=== PATIENT | male | born 1940 | race Caucasian/White ===

== ENCOUNTER 2019-02-02 23:51 | Emergency (ER) | payer MEDICARE, BC ==
[~2019-02-02] VITALS: Wt 82.5 kg
[2019-02-03] MEDS ORDERED: SOD CHLORIDE 0.9% 1,000 ML IV STA (00:25)
[2019-02-03] MEDS ORDERED: ONDANSETRON 4 MG INJ IV STA (00:25)
--- NOTE | 2019-02-03 00:47 | ERD ---
ER Documentation Chief Complaint Chief Complaint BIB RA FROM HOME FOR N/V X 1 DAY, DRINKS DAILY HPI 78-year-old male brought in by ambulance from home after he had a few episodes of nausea with nonbloody and nonbilious vomiting. He also complained of generalized weakness. He did have 2 drinks tonight and occasionally drinks. He states he mixed a lot of food as well as it is a holiday. He just thinks he may be did not react to all the food he ate in addition to the drinks. Currently he denies any chest pain or shortness of breath. No abdominal pain. He does feel dizzy and nauseated with movement only. No melena or hematochezia recently. ROS All systems reviewed and are negative except as per history of present illness. Medications Home Meds Active Scripts Meclizine Hcl* (Antivert*) 12.5 Mg Tab, 25 MG PO Q6H PRN for DIZZINESS, #20 TAB Prov:RYAN ANDERSON MD 02/03/19 Allergies Allergies: Coded Allergies: No Known Allergy (Unverified , 02/03/19) PMhx/Soc History of Surgery: Yes (CARDIAC STENT, CHOLECYSTECTOMY ) Anesthesia Reaction: No Hx Neurological Disorder: No Hx Respiratory Disorders: No Hx Cardiac Disorders: Yes (CAD, hypertension) Hx Miscellaneous Medical Probl: Yes ( newly diagnosed diabetes) Hx Alcohol Use: Yes Hx Substance Use: No Hx Tobacco Use: No Smoking Status: Never smoker FmHx Family History: No diabetes Physical Exam Vitals Vital Signs Date Temp Pulse Resp B/P (MAP) Pulse Ox O2 O2 Flow FiO2 Time Delivery Rate 02/03/19 98.7 86 19 122/73 99 Room Air 05:32 (89) 02/03/19 98.7 61 19 111/67 99 Room Air 00:36 (82) 02/02/19 98.7 75 19 115/89 96 23:56 (98) Physical Exam Const: No acute distress, appears fatigued Head: Atraumatic Eyes: Normal Conjunctiva, PERRLA, EOMI. left-sided horizontal nystagmus. No vertical or rotatory nystagmus. ENT: Dry mucous membranes. Normal External Ears, Nose and Mouth. Neck: Full range of motion. No meningismus. Resp: Clear to auscultation bilaterally Cardio: Regular rate and rhythm, no murmurs 2+ distal pulses in all 4 extremities Abd: Soft, non tender, non distended. Normal bowel sounds Skin: No petechiae or rashes Back: No midline or flank tenderness Ext: No cyanosis, or edema Neur: Awake and alert, oriented, cranial nerves intact, strength and sensations intact in all 4 extremities. Normal speech without dysarthria or aphasia. Psych: Normal Mood and Affect Result Diagram: 02/03/19 0015 02/03/19 0015 Results 24 hrs Laboratory Tests Test 02/03/19 00:15 02/03/19 04:41 White Blood Count 5.0 10^3/ul Red Blood Count 4.44 10^6/ul Hemoglobin 11.9 g/dl Hematocrit 35.4 % Mean Corpuscular Volume 79.7 fl Mean Corpuscular Hemoglobin 26.8 pg Mean Corpuscular Hemoglobin Concent 33.6 g/dl Red Cell Distribution Width 12.2 % Platelet Count 231 10^3/UL Mean Platelet Volume 9.5 fl Immature Granulocytes % 0.200 % Neutrophils % 56.5 % Lymphocytes % 33.9 % Monocytes % 7.0 % Eosinophils % 2.0 % Basophils % 0.4 % Nucleated Red Blood Cells % 0.0 /100WBC Immature Granulocytes # 0.010 10^3/ul Neutrophils # 2.8 10^3/ul Lymphocytes # 1.7 10^3/ul Monocytes # 0.4 10^3/ul Eosinophils # 0.1 10^3/ul Basophils # 0.0 10^3/ul Nucleated Red Blood Cells # 0.0 10^3/ul Sodium Level 139 mmol/L Potassium Level 4.0 mmol/L Chloride Level 104 mmol/L Carbon Dioxide Level 23 mmol/L Anion Gap 12 Blood Urea Nitrogen 22 mg/dl Creatinine 0.96 mg/dl Est Glomerular Filtrat Rate mL/min mL/min Glucose Level 225 mg/dl Calcium Level 9.0 mg/dl Total Bilirubin 0.4 mg/dl Direct Bilirubin 0.00 mg/dl Indirect Bilirubin 0.4 mg/dl Aspartate Amino Transf (AST/SGOT) 23 IU/L Alanine Aminotransferase (ALT/SGPT) 17 IU/L Alkaline Phosphatase 56 IU/L Troponin I < 0.012 ng/ml < 0.012 ng/ml Total Protein 6.7 g/dl Albumin 4.0 g/dl Globulin 2.70 g/dl Albumin/Globulin Ratio 1.48 Lipase 207 U/L Current Medications Medications Dose Sig/Michael Start Time Status Last (Trade) Ordered Route PRN Stop Time Admin Dose Reason Admin Sodium 1,000 ml @ Q1H STAT 02/03/19 DC 02/03/19 Chloride 1,000 mls/hr IV 00:25 00:31 02/03/19 01:24 Ondansetron 4 mg ONCE STAT 02/03/19 DC 02/03/19 HCl (Zofran IV 00:25 00:31 Inj) 02/03/19 00:26 10 mg ONCE ONCE 02/03/19 DC 02/03/19 Metoclopramid IV 03:00 02:47 e HCl 02/03/19 03:01 (Reglan) Procedures/MDM EMERGENT LABS AND DIAGNOSTIC STUDIES: Lab Results above were reviewed and interpreted by me. CBC: no anemia or evidence of infection CMP: Hyperglycemic. 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 Radiology Results as interpreted by Radiology below were reviewed by SShonna Anderson MD: Chest x-ray shows no acute abnormalities Initial Nursing notes reviewed. Previous Medical Records requested via the Electronic Health Record. EMERGENCY DEPARTMENT COURSE / MEDICAL DECISION MAKING: Patient is presenting with nausea and vomiting and generalized weakness. Vitals were unremarkable upon arrival. He is neurovascularly intact. He did have some nystagmus, concerning for possible peripheral vertigo. Workup did not show any significant abnormalities. Troponin was within normal limits. Patient was treated with antiemetics and IV fluids. At rest he was fine but with ambulation he did get vertiginous and had another episode of vomiting. He was treated with another antiemetic and repeat troponin was done. Repeat troponin was again within normal limits. Upon reevaluation, the patient was ambulating with a steady gait and was no longer symptomatic. I have a low suspicion for intracranial hemorrhage or stroke. I do not suspect acute coronary syndrome. I feel the patient is stable for discharge at this time. He feels comfortable with discharge plan. Return precautions were discussed. Meclizine was given for possible peripheral vertigo. Patient's blood pressure was elevated (>120/80) but appears stable without evidence of hypertensive emergency or urgency. The patient was counseled about the risks of hypertension and urged to pursue outpatient monitoring and therapy within a week with their primary care physician. Departure Diagnosis: Primary Impression: Nausea and vomiting Vomiting type: unspecified Vomiting Intractability: non-intractable Qualified Codes: R11.2 - Nausea with vomiting, unspecified Additional Impression: Acute weakness Condition: Stable EKRYAN MANSFIELD MD Feb 03, 2019 00:47
[2019-02-03] MEDS ORDERED: METOCLOPRAMIDE 10 MG INJ IV ONE (03:00)
[2019-02-03] MEDS ORDERED: MECL12.574 PO (05:23)
[2019-02-03 05:32] VITALS: BP 122/73; PULSE 86; RESP 19
== END 2019-02-03 05:34 | disposition home or self-care (01) ==
LOC: E/R 23:51
DX: R11.2 Nausea with vomiting, unspecified (principal); E11.9 Type 2 diabetes mellitus without complications; I10 Essential (primary) hypertension; I25.10 Atherosclerotic heart disease of native coronary artery without angina pectoris; R53.1 Weakness; Z98.61 Coronary angioplasty status
CPT/HCPCS: 36415; 71045; 80053; 83690; 84484; 85025; 96374; 96375; 99285; J2405; J2765; J7030